=== PATIENT | female | born 1945 | race Caucasian/White ===

== ENCOUNTER 2020-04-28 15:27 | Emergency (ER) | payer OTHER ==
[~2020-04-28 15:27] MED LIST: AMARYL 2MG TABLE2 MG PO; CIPRO500 MG PO; CLEOCIN HCL300 MG PO; CRESTOR5 MG PO; DULOXETINE HCL60 MG PO; EFFER-K 10 MEQ10 MEQ PO; HYDROCODONE-IB1 EAC3 PO; LANTUS100 UNIT/1 SQ; LEVOTHYROXINE100 MC2 PO; LOSARTAN-HCTZ1 EAC2 PO; LYRICA100 MG PO; MACROBID 100 M100 MG PO; NOVOLOG FL100 UNIT/1 SQ; PEPCID AC20 MG PO; PERCOCET 5-3251 EACH PO; VITAMIN C500 M4 PO; VITAMIN D21250 MCG PO; ZEBETA 5 MG TAB5 MG PO; benfotiamine
== END 2020-04-28 16:58 | disposition home or self-care (01) ==
LOC: ER1 15:27
DX: E11.42 Type 2 diabetes mellitus with diabetic polyneuropathy (principal)
CPT/HCPCS: 73620; 99283